=== PATIENT | male | born 2000 | race Caucasian/White ===

== ENCOUNTER 2020-09-14 22:34 | Emergency (ER) | payer MEDICAID ==
[~2020-09-14] VITALS: Ht 162.6 cm; Wt 70.8 kg
[2020-09-14 22:46] VITALS: Ht 162.6 cm; Wt 70.8 kg
[2020-09-14 23:48] VITALS: BP 147/85
== END 2020-09-15 00:27 | disposition home or self-care (01) ==
LOC: ED 22:34
DX: K62.5 Hemorrhage of anus and rectum (principal)